=== PATIENT | female | born 1930 | race Caucasian/White ===

== ENCOUNTER 2019-05-21 11:41 | Outpatient (CLI) | payer MEDICARE ==
--- NOTE | 2019-05-21 14:06 | RAD ---
TWO VIEW CHEST: HISTORY: Pleural effusion. COMPARISON: There are no recent comparison studies available. FINDINGS: There are bilateral pleural effusions, larger on the right. The aerated lungs appear clear. No vasc ular congestion. Heart size is normal. Osseous structures are unremarkable with mild degenerative s pine changes and a left shoulder prosthesis. Mild degenerative changes at the right shoulder. IMPRESSION: Bilateral pleural effusions, larger on the right. POS: [facility]
== END 2019-05-21 11:42 | disposition home or self-care (01) ==
LOC: RAD 11:41
PROVIDERS: ATTEND Thoracic Surgery (Cardiothoracic Vascular Surgery)
DX: J90 Pleural effusion, not elsewhere classified (principal)
CPT/HCPCS: 71046

== ENCOUNTER 2019-10-23 13:17 | Outpatient (CLI) | payer MEDICARE ==
--- NOTE | 2019-10-23 14:41 | RAD ---
2 VIEWS CHEST: Date: 10/23/2019 COMPARISON: 05/21/2019. HISTORY: Reevaluate pleural effusion. FINDINGS: No pneumothorax is evident. There is dense pleural and parenchymal opacity in the left lung base, whi ch has worsened since the prior examination suggesting an enlarging small/moderate left pleural effus ion. There is dense pleural and parenchymal opacity in the right lung base. There is a chest tube ove rlying the right lung base as well. Findings suggest residual small/moderate pleural effusion on the right with nonspecific associated parenchymal opacity. Clips in the right upper quadrant suggest prio r cholecystectomy. IMPRESSION: Persistent pleural and parenchymal opacity within the lung bases consistent with bilateral pleural ef fusions and probable associated volume loss. The right pleural effusion is smaller than on the prior examination with a right chest tube in place. The left pleural effusion has enlarged when compared to the prior study. POS: [facility]
== END 2019-10-23 13:18 | disposition home or self-care (01) ==
LOC: RAD 13:17
PROVIDERS: ATTEND Thoracic Surgery (Cardiothoracic Vascular Surgery)
DX: J90 Pleural effusion, not elsewhere classified (principal); R91.8 Other nonspecific abnormal finding of lung field
CPT/HCPCS: 71046

== ENCOUNTER 2019-11-08 14:16 | Outpatient (CLI) | payer MEDICARE ==
--- NOTE | 2019-11-08 14:34 | RAD ---
CHEST TWO VIEWS: HISTORY: Dyspnea. COMPARISON: 10/23/2019 FINDINGS: Bilateral pleural effusions again noted, not significantly changed from prior exam. Mild vascular con gestion appears stable. Mild cardiomegaly. IMPRESSION: Bilateral effusions and mild congestive changes do not appear significantly changed when compared to prior study. POS: [facility]
== END 2019-11-08 14:17 | disposition home or self-care (01) ==
LOC: RAD 14:16
PROVIDERS: ATTEND Thoracic Surgery (Cardiothoracic Vascular Surgery)
DX: J90 Pleural effusion, not elsewhere classified (principal)
CPT/HCPCS: 71046

== ENCOUNTER 2019-11-22 12:42 | Outpatient (CLI) | payer MEDICARE ==
--- NOTE | 2019-11-22 13:09 | RAD ---
EXAM: Two views chest PROVIDED CLINICAL HISTORY: Dyspnea COMPARISON: 11/08/2019 FINDINGS: Bilateral pleural effusions are again noted. There is suggestion of minimal improvement in left pleur al effusion compared to the prior study. Parenchymal changes are again seen at the right lung base which may be related to atelectasis. However, pneumonia or underlying underlying lesion cannot be ent irely excluded. Linear scar versus atelectasis is seen in the right midlung zone. Patient is rotated to the right accentuating mediastinal structures. Cardiac silhouette is probably within jaci l limits. Left shoulder prosthesis is again present. Surgical clips overlie the right upper quadrant. IMPRESSION: Bilateral pleural effusions slightly smaller in size on the left. Parenchymal changes persist at the right lung base which is probably attributable to atelectasis, but underlying pneumonia or lesion cannot be entirely excluded. Follow-up to resolution is recommended..
== END 2019-11-22 12:43 | disposition home or self-care (01) ==
LOC: RAD 12:42
PROVIDERS: ATTEND Thoracic Surgery (Cardiothoracic Vascular Surgery)
DX: J90 Pleural effusion, not elsewhere classified (principal)
CPT/HCPCS: 71046